=== PATIENT | male | born 1965 | race Caucasian/White ===

== ENCOUNTER 2023-12-05 08:13 | Emergency (ER) | payer OTHER, BC ==
[2023-12-05 08:20] VITALS: RESP 18; BMI 27.9
[2023-12-05] MEDS: SODIUM CHLORIDE 1,000 ML IV STA (08:35)
[2023-12-05] MEDS: ACETAMINOPHEN 1000 MG/100 ML BAG IVPB ONE (08:45)
[2023-12-05] MEDS ORDERED: ACETAMINOPHEN INJECTION 100 ML IVPB ONE (08:52)
[2023-12-05 09:14] LABS: HEMATOCRIT 42.6 % (35.4-49); HEMOGLOBIN 14.4 G/dL (11.7-16.9); MCH 32.2 pg (25.7-33.7); MCHC 33.7 g/dl (32.0-35.9); MEAN CELL VOLUME 95.5 fl (80-96); PLATELET COUNT 144.3 10^3/uL (134-434); RBC 4.46 10^6/uL (4.00-5.60); RDW 13.3 % (11.9-15.9); WHITE BLOOD COUNT 4.1 10^3/uL (4.0-10.8)
[2023-12-05] MEDS ORDERED: cefTRIAXone SODIUM 1 GM VIAL ONE (09:14)
[2023-12-05 09:15] LABS: EPITHELIAL CELLS 0-5 /hpf
[2023-12-05 09:21] LABS: ALBUMIN 4.2 g/dl (3.4-5.0); BILIRUBIN,TOTAL 0.5 mg/dl (0.2-1); CALCIUM 9.1 mg/dl (8.5-10.1); POTASSIUM 4.2 mmol/L (3.5-5.1)
[2023-12-05 09:22] LABS: PLATELET ESTIMATE ADEQUATE
[2023-12-05] MEDS: CEFTRIAXONE 1 GM in DEXTROSE 5%-WATER - 100 ML IVPB ONE (09:24)
[2023-12-05 12:28] VITALS: BP 123/83; PULSE 78; TEMP 98.8
== END 2023-12-05 13:07 | disposition home or self-care (01) ==
LOC: FER 08:13
PROC: 3E033GC Introduction of Other Therapeutic Substance into Peripheral Vein, Percutaneous Approach (ICD-10-PCS; principal; 2023-12-05)
PROC: 3E033GC Introduction of Other Therapeutic Substance into Peripheral Vein, Percutaneous Approach (ICD-10-PCS; 2023-12-05)
DX: R50.9 Fever, unspecified (principal); R39.15 Urgency of urination; N12 Tubulo-interstitial nephritis, not specified as acute or chronic
CPT/HCPCS: 36415; 74176-TC; 80053; 81003; 81015; 83690; 85027; 87040; 87086; 87186; 99284-25; J0131